=== PATIENT | female | born 1990 | race African-American/Black ===

== ENCOUNTER 2019-02-14 10:15 | Inpatient (IN) ==
[2019-02-14] MEDS ORDERED: BUTORPHANOL 1 MG/ML VIAL IM ONE (12:44)
[2019-02-14 13:39] LABS: Basophils % 0.2 % (0.0-0.8); Eosinophils # 0.1 10*3/uL (0.0-0.87); Eosinophils % 0.6 % (0.00-10.9); Hematocrit 34.4 VOL% (35.7-47.0); Hemoglobin 10.7 GM/DL (12.0-16.0); Immature Granulocytes % 1.3 %; Immature Granulocytes Absolute 0.13 #; Lymphocytes # 0.8 10*3/uL (1.4-4.0); Lymphocytes % 8.3 % (21.3-54.2); Mean Corpuscular HGB Conc 31.1 GM/DL (32-36); Mean Platelet Volume 11.5 FL (9.6-12.0); Monocytes % 7.9 % (1.7-12.7); Neutrophils % 81.7 % (38.7-73.9); Platelet Count 183 T/CUMM (130-400); Red Blood Count 3.78 MC/CUMM (3.8-5.5); Red Cell Distribution Width 13.3 % (9.3-17.3); White Blood Count 9.6 T/CUMM (4-12)
[2019-02-14 13:49] LABS: INR 0.9; PT Patient Result 9.8 SECS (9.6-12.2); Partial Thromboplastin Time 27.9 SECS (20.8-36.0)
[2019-02-14 13:55] LABS: Apearance,Urine CLEAR (Clear); Bilirubin,Urine Negative (Negative); Blood, Urine Negative (Negative); Glucose,Urine (UA) Negative (Negative); Ketones,Urine 20 mg/dL (Negative); Mucus,Urine Occasional /LPF (Occasional); Nitrite,Urine Negative (Negative); Protein,Urine 100 MG/DL; RBC,Urine 3 /HPF (0-4); Squamous Epithelial Cell,Urine Occasional /HPF (0-10); Urine Color Yellow (Yellow); Urine Specific Gravity 1.015 (1.001-1.035); Urine Urobilinogen < 2.0 EU/DL (0.2-1.0); WBC,Urine 2 /HPF (0-6)
[2019-02-14 14:01] LABS: Albumin 2.9 G/DL (3.4-5.0); Bilirubin,Direct 0.14 MG/DL (0.0-0.20); Bilirubin,Total 0.6 MG/DL (0.2-1.0); Calcium 9.4 MG/DL (8.5-10.1); Osmolality,Calculated 271.7 MOS/KG (273-304); Uric Acid 4.3 MG/DL (2.6-6.0)
[2019-02-14] MEDS ORDERED: ONDANSETRON 4 MG/2 ML VIAL IV PRN (15:40)
[2019-02-14] MEDS ORDERED: MEPERIDINE 50 MG/1 ML VIAL IV PRN (15:40)
[2019-02-14] MEDS ORDERED: LIDOCAINE 1% 50 ML VIAL MISC INJ ONE (15:40)
[2019-02-14] MEDS ORDERED: TERBUTALINE 1 MG/1 ML VIAL SUBCUT PRN (15:40)
[2019-02-14] MEDS ORDERED: LACTATED RINGERS 1,000 ML IV SCH (16:00)
[2019-02-14] MEDS: BUTORPHANOL 2 MG/ML VIAL IV PRN ×2 (16:31→19:39)
[2019-02-14] MEDS ORDERED: diphenhydrAMINE 50 MG/1 ML VIAL IV ONE (18:07)
[2019-02-14] MEDS ORDERED: PROMETHAZINE 25 MG/1 ML VIAL IM ONE (18:54)
[2019-02-14] MEDS ORDERED: NALOXONE 0.4 MG/ML VIAL IV PRN (18:54)
[2019-02-14] MEDS ORDERED: FAMOTIDINE 20 MG/2 ML VIAL IV ONE (18:54)
[2019-02-14] MEDS ORDERED: LACTATED RINGERS 1,000 ML IV ONE (18:54)
[2019-02-14] MEDS ORDERED: ePHEDrine 50 MG/ML AMP IV PRN (18:54)
[2019-02-14] MEDS ORDERED: hydrOXYzine HCL 25 MG/1 ML VIAL IM PRN (18:54)
[2019-02-14] MEDS ORDERED: diphenhydrAMINE 50 MG/1 ML VIAL IV PRN ×2 (18:54)
[2019-02-14] MEDS ORDERED: CITRIC ACID/SODIUM CITRATE 30 ML UDCUP PO ONE (18:54)
[2019-02-14] MEDS ORDERED: fentaNYL 2 MCG/ROPIV 0.2% EPID 100 ML EPIDURAL SCH (19:00)
[2019-02-14] MEDS ORDERED: OXYTOCIN/LR 20 UNIT/1,000 ML BAG IV SCH (21:00)
[2019-02-14 22:34] LABS: Apearance,Urine CLEAR (Clear); Bacteria,Urine Occasional /HPF (Few); Bilirubin,Urine Negative (Negative); Blood, Urine Negative (Negative); Glucose,Urine (UA) Negative (Negative); Hyaline Casts,Urine 1 /LPF (0-3); Ketones,Urine 80 mg/dL (Negative); Nitrite,Urine Negative (Negative); Protein,Urine 100 MG/DL; RBC,Urine 1 /HPF (0-4); Renal Epithelial Cells,Urine Occasional /HPF (<1); Squamous Epithelial Cell,Urine Occasional /HPF (0-10); Urine Specific Gravity 1.008 (1.001-1.035); Urine Urobilinogen < 2.0 EU/DL (0.2-1.0); WBC,Urine 1 /HPF (0-6)
[2019-02-15] MEDS ORDERED: miSOPROStol 200 MCG TABLET ONE (01:50)
[2019-02-15] MEDS ORDERED: METHYLERGONOVINE 0.2 MG/1 ML AMP ONE (01:51)
[2019-02-15] MEDS ORDERED: OXYTOCIN/LR 20 UNIT/1,000 ML BAG IV ONE ×2 (01:51→02:34)
[2019-02-15] MEDS ORDERED: CARBOPROST TROMETHAMINE 250 MCG/ML AMP IM ONE (01:51)
[2019-02-15] MEDS ORDERED: TRANEXAMIC ACID 1,000 MG/10 ML VIAL ONE (01:51)
[2019-02-15] MEDS ORDERED: BISACODYL 10 MG SUPP RECTAL PRN (02:34)
[2019-02-15] MEDS ORDERED: IBUPROFEN 800 MG TABLET PO PRN (02:34)
[2019-02-15] MEDS ORDERED: HYDROCORTISONE 2.5% RECTAL CREAM 30 GM TUBE TOP PRN (02:34)
[2019-02-15] MEDS ORDERED: WITCH HAZEL PADS 100/JAR TOP PRN (02:34)
[2019-02-15] MEDS ORDERED: ACETAMINOPHEN 325 MG TABLET PO PRN (02:34)
[2019-02-15] MEDS ORDERED: MEASLES/MUMPS/RUBELLA VACCINE 0.5 ML VIAL SUBCUT ONE (02:34)
[2019-02-15] MEDS ORDERED: BENZOCAINE 20%/MENTHOL 0.5% SPRAY 56 GM CAN TOP PRN (02:34)
[2019-02-15] MEDS ORDERED: RHO(D) IMMUNE GLOBULIN 300 MCG SYRINGE IM ONE (02:34)
[2019-02-15] MEDS ORDERED: oxyCODONE/ACETAMINOPHEN 5-325 MG TABLET PO PRN ×2 (02:34)
[2019-02-15] MEDS ORDERED: DIPH/TET/ACEL PERT BOOSTER VACCINE 0.5 ML VIAL IM ONE (02:34)
[2019-02-15] MEDS ORDERED: ONDANSETRON 4 MG/2 ML VIAL IV PRN (02:34)
[2019-02-15] MEDS ORDERED: LANOLIN 50% CREAM 0.3 OZ TUBE TOP PRN (02:34)
[2019-02-15 04:49] LABS: Urine Color Yellow (Yellow)
[2019-02-15 04:58] LABS: Basophils % 0.2 % (0.0-0.8); Eosinophils % 0.1 % (0.00-10.9); Hematocrit 31.9 VOL% (35.7-47.0); Immature Granulocytes % 1.1 %; Immature Granulocytes Absolute 0.19 #; Lymphocytes # 0.8 10*3/uL (1.4-4.0); Lymphocytes % 4.5 % (21.3-54.2); Mean Corpuscular HGB Conc 31.3 GM/DL (32-36); Mean Corpuscular Volume 91.7 FL (87-102); Mean Platelet Volume 11.8 FL (9.6-12.0); Neutrophils % 84.1 % (38.7-73.9); Platelet Count 182 T/CUMM (130-400); Red Blood Count 3.48 MC/CUMM (3.8-5.5); Red Cell Distribution Width 13.5 % (9.3-17.3)
[2019-02-15 05:17] LABS: Band Neutrophils 3 % (0-10); Hypochromasia 1+; Lymphocytes 1 % (20-55); Platelet Estimate Adequate; Segmented Neutrophils 90 % (50-85); Total Cells Counted 100
[2019-02-15] MEDS: MULTIVITAMIN (PRENATAL) TABLET PO SCH (08:39)
[2019-02-15] MEDS: DOCUSATE SODIUM 100 MG CAPSULE PO SCH ×2 (08:39→21:10)
[2019-02-16 04:58] LABS: Basophils # 0.1 10*3/uL (0.0-0.2); Basophils % 0.4 % (0.0-0.8); Eosinophils # 0.2 10*3/uL (0.0-0.87); Eosinophils % 1.8 % (0.00-10.9); Hematocrit 28.5 VOL% (35.7-47.0); Hemoglobin 8.8 GM/DL (12.0-16.0); Immature Granulocytes % 1.4 %; Immature Granulocytes Absolute 0.16 #; Lymphocytes # 1.6 10*3/uL (1.4-4.0); Lymphocytes % 13.5 % (21.3-54.2); Mean Corpuscular HGB Conc 30.9 GM/DL (32-36); Mean Corpuscular Volume 91.3 FL (87-102); Mean Platelet Volume 11.7 FL (9.6-12.0); Monocytes % 9.8 % (1.7-12.7); Neutrophils % 73.1 % (38.7-73.9); Platelet Count 161 T/CUMM (130-400); Red Blood Count 3.12 MC/CUMM (3.8-5.5); Red Cell Distribution Width 13.7 % (9.3-17.3); White Blood Count 11.7 T/CUMM (4-12)
[2019-02-16] MEDS: MULTIVITAMIN (PRENATAL) TABLET PO SCH (10:07)
[2019-02-16] MEDS: DOCUSATE SODIUM 100 MG CAPSULE PO SCH (10:07)
[2019-02-16 11:43] VITALS: BP 131/86
== END 2019-02-16 16:30 | disposition home or self-care (01) | DRG 807 ==
LOC: N.LDOUT 10:15 → N.LD 10:18 → N.OB 02-15 05:33
PROVIDERS: ADMIT Obstetrics & Gynecology; ATTEND Obstetrics & Gynecology